=== PATIENT | male | born 1975 | race Two or more races ===

== ENCOUNTER 2022-10-20 14:27 | Emergency (ER) | payer OTHER ==
[~2022-10-20] VITALS: Ht 180.3 cm; Wt 133.8 kg
[2022-10-20] MEDS ORDERED: TOPROL XL25 M1 PO (22:21)
[2022-10-20] MEDS ORDERED: COZAAR50 MG PO (22:21)
== END 2022-10-20 22:29 | disposition home or self-care (01) ==
LOC: ER 14:27
DX: I16.0 Hypertensive urgency (principal)